=== PATIENT | female | born 2000 | race Two or more races ===

== ENCOUNTER 2021-08-13 08:52 | Emergency (ER) | payer BC, OTHER ==
[~2021-08-13] VITALS: Ht 167.6 cm; Wt 83.9 kg
[2021-08-13 09:35] VITALS: BP 120/81
== END 2021-08-13 10:47 | disposition home or self-care (01) ==
LOC: ER 08:52
DX: S90.122A Contusion of left lesser toe(s) without damage to nail, initial encounter (principal); W22.8XXA Striking against or struck by other objects, initial encounter; Y93.89 Activity, other specified; Y92.89 Other specified places as the place of occurrence of the external cause; Y99.8 Other external cause status
CPT/HCPCS: 73630

== ENCOUNTER 2021-12-26 16:14 | Emergency (ER) | payer BC ==
[~2021-12-26] VITALS: Ht 167.6 cm; Wt 88.6 kg
[2021-12-26 16:25] VITALS: BP 121/80
[2021-12-26] MEDS ORDERED: IBUP800T27 PO (17:27)
== END 2021-12-26 17:36 | disposition home or self-care (01) ==
LOC: ER 16:14
DX: S20.212A Contusion of left front wall of thorax, initial encounter (principal); V48.5XXA Car driver injured in noncollision transport accident in traffic accident, initial encounter; Y93.89 Activity, other specified; Y92.89 Other specified places as the place of occurrence of the external cause; Y99.8 Other external cause status
CPT/HCPCS: 71046; 93005

== ENCOUNTER 2022-09-07 17:31 | Inpatient (IN) | payer BC ==
[~2022-09-07] VITALS: Ht 165.1 cm; Wt 98.3 kg
[~2022-09-07 17:31] MED LIST: IBUP800T27 PO
[2022-09-07 18:25] LABS: Basophils # (auto) 0.1 10 ^3/uL (0-0.2); Eosinophils # (auto) 0.1 10 ^3/uL (0-0.8); Eosinophils % (auto) 0.6 % (0.0-7.0); Nucleated Red Blood Cells % 0.1 %
[2022-09-07 18:26] LABS: Basophils % (auto) 0.3 % (0.0-2.0); Hematocrit 42.8 % (36.0-46.0); Hemoglobin 14.4 g/dL (12.2-16.2); Lymphocytes # (auto) 1.4 10 ^3/uL (0.4-5.4); Lymphocytes % (auto) 8.6 % (10.0-50.0); Mean Corpuscular Hemoglobin 26.4 pg (28.0-32.0); Mean Corpuscular Hgb Conc. 33.6 g/dL (32.0-36.0); Mean Corpuscular Volume 78.5 fL (80.0-100.0); Monocytes % (auto) 6.2 % (0.0-12.0); Neutrophils # (auto) 13.5 10 ^3/uL (1.6-8.6); Neutrophils % (auto) 84.3 % (37.0-80.0); Red Blood Cells 5.45 10^6/uL (4.0-5.20); Red Cell Distribution Width 14.5 % (11.8-14.3)
[2022-09-07 18:38] LABS: Albumin 4.4 g/dL (3.4-5.0); Calcium 9.4 mg/dL (8.5-10.1)
[2022-09-07 18:42] LABS: Bilirubin, Total 0.5 mg/dL (0.2-1.0); Total Protein 9.6 g/dL (6.4-8.2)
[2022-09-07] MEDS ORDERED: metroNIDAZOLE 500MG/100ML 100 ML IV ONE (21:00)
[2022-09-07] MEDS ORDERED: ACETAMINOPHEN 325 MG TAB PO PRN (23:15)
[2022-09-07] MEDS ORDERED: PANTOPRAZOLE 40 MG/10 ML VIAL INJ IV ONE (23:15)
[2022-09-07] MEDS ORDERED: SODIUM CHLORIDE 0.9% 1,000 ML IV ONE (23:30)
[2022-09-07 23:41] LABS: Cholesterol 194 mg/dL (< 200); Triglycerides 93 mg/dL (< 150)
[2022-09-07] MEDS: SODIUM CHLORIDE 0.9% 1,000 ML IV SCH (23:41)
[2022-09-07 23:43] LABS: HDL Cholesterol 56 mg/dL (40-59); LDL Cholesterol 130 mg/dL (< 100)
[2022-09-07] MEDS: ONDANSETRON HCL 4 MG/2 ML VIAL IV PRN (23:51)
[2022-09-08] MEDS: SODIUM CHLORIDE 0.9% 1,000 ML IV SCH (03:05)
[2022-09-08 06:53] LABS: Basophils # (auto) 0.1 10 ^3/uL (0-0.2); Basophils % (auto) 1.1 % (0.0-2.0); Eosinophils # (auto) 0 10 ^3/uL (0-0.8); Eosinophils % (auto) 0.1 % (0.0-7.0); Hematocrit 36.1 % (36.0-46.0); Hemoglobin 12.2 g/dL (12.2-16.2); Lymphocytes # (auto) 0.6 10 ^3/uL (0.4-5.4); Lymphocytes % (auto) 6.2 % (10.0-50.0); Mean Corpuscular Hemoglobin 26.3 pg (28.0-32.0); Mean Corpuscular Hgb Conc. 33.8 g/dL (32.0-36.0); Mean Corpuscular Volume 77.8 fL (80.0-100.0); Monocytes # (auto) 0.3 10 ^3/uL (0-1.3); Monocytes % (auto) 3.2 % (0.0-12.0); Neutrophils # (auto) 8.2 10 ^3/uL (1.6-8.6); Neutrophils % (auto) 89.4 % (37.0-80.0); Nucleated Red Blood Cells % 0.1 %; Red Blood Cells 4.64 10^6/uL (4.0-5.20); Red Cell Distribution Width 14.6 % (11.8-14.3); White Blood Cell 9.2 10^3/uL (4.4-10.8)
[2022-09-08] MEDS: metroNIDAZOLE 500MG/100ML 100 ML IV SCH ×3 (07:05→21:03)
[2022-09-08 07:13] LABS: Albumin 3.6 g/dL (3.4-5.0); Potassium 3.5 mmol/L (3.5-5.1)
[2022-09-08 07:18] LABS: BUN/Creatinine Ratio 16.4 (10.0-20.0); Bilirubin, Total 0.7 mg/dL (0.2-1.0); Total Protein 7.6 g/dL (6.4-8.2)
[2022-09-08 08:19] LABS: Urine Bacteria NONE SEEN /hpf (None Seen); Urine Blood Negative /uL (Negative); Urine Hyaline Cast FEW /lpf (0 - 2); Urine Mucus FEW (None Seen); Urine Specific Gravity 1.027 (1.001-1.035); Urine WBC 10 /hpf (0 - 5)
[2022-09-08] MEDS: ONDANSETRON HCL 4 MG/2 ML VIAL IV PRN (08:54)
[2022-09-08] MEDS ORDERED: ACETAMINOPHEN 500 MG TAB PO PRN (10:30)
[2022-09-08] MEDS ORDERED: ONDANSETRON HCL 4 MG/2 ML VIAL IV PRN (10:30)
[2022-09-08] MEDS ORDERED: HYDROcodone-ACET 5/325MG TAB PO PRN (10:30)
[2022-09-08] MEDS: PANTOPRAZOLE 40 MG/10 ML VIAL INJ IV SCH (11:37)
[2022-09-08] MEDS: D5W/SOD CHL 0.45%/KCL 20MEQ 1,000 ML IV SCH ×2 (11:37→18:45)
[2022-09-08] MEDS: levoFLOXacin 500MG 100 ML IV SCH (11:38)
[2022-09-08] MEDS: MORPHINE SULFATE INJ 2 MG/ml SYRG IV PRN ×2 (11:39→21:11)
[2022-09-08 18:08] VITALS: BP 94/61
[2022-09-08 20:00] VITALS: BP 107/70
[2022-09-08 21:51] VITALS: BP 95/56
[2022-09-09] MEDS: D5W/SOD CHL 0.45%/KCL 20MEQ 1,000 ML IV SCH ×3 (01:54→20:00)
[2022-09-09 04:45] VITALS: BP 99/63
[2022-09-09] MEDS: metroNIDAZOLE 500MG/100ML 100 ML IV SCH ×3 (05:48→20:57)
[2022-09-09 05:59] LABS: Basophils # (auto) 0 10 ^3/uL (0-0.2); Eosinophils # (auto) 0.1 10 ^3/uL (0-0.8); Lymphocytes # (auto) 0.9 10 ^3/uL (0.4-5.4); Nucleated Red Blood Cells % 0.1 %
[2022-09-09 06:05] LABS: Basophils % (auto) 0.7 % (0.0-2.0); Eosinophils % (auto) 2.3 % (0.0-7.0); Hematocrit 33.8 % (36.0-46.0); Hemoglobin 11.4 g/dL (12.2-16.2); Lymphocytes % (auto) 25.4 % (10.0-50.0); Mean Corpuscular Hemoglobin 26.6 pg (28.0-32.0); Mean Corpuscular Hgb Conc. 33.8 g/dL (32.0-36.0); Mean Corpuscular Volume 78.6 fL (80.0-100.0); Monocytes # (auto) 0.6 10 ^3/uL (0-1.3); Monocytes % (auto) 15.9 % (0.0-12.0); Neutrophils # (auto) 2.1 10 ^3/uL (1.6-8.6); Neutrophils % (auto) 55.7 % (37.0-80.0); Red Cell Distribution Width 14.1 % (11.8-14.3); White Blood Cell 3.7 10^3/uL (4.4-10.8)
[2022-09-09 06:15] LABS: Albumin 2.9 g/dL (3.4-5.0); Calcium 8.2 mg/dL (8.5-10.1); Potassium 3.6 mmol/L (3.5-5.1)
[2022-09-09 06:17] LABS: BUN/Creatinine Ratio 5.3 (10.0-20.0)
[2022-09-09 06:21] LABS: Bilirubin, Total 0.4 mg/dL (0.2-1.0); Total Protein 6.9 g/dL (6.4-8.2)
[2022-09-09] MEDS: PANTOPRAZOLE 40 MG/10 ML VIAL INJ IV SCH (08:49)
[2022-09-09] MEDS: levoFLOXacin 500MG 100 ML IV SCH (08:49)
[2022-09-09 09:00] VITALS: BP 98/62
[2022-09-09 13:00] VITALS: BP 107/74
[2022-09-09 17:00] VITALS: BP 98/66
[2022-09-09 22:00] VITALS: BP 96/62
[2022-09-10] MEDS: D5W/SOD CHL 0.45%/KCL 20MEQ 1,000 ML IV SCH ×5 (04:10→21:47)
[2022-09-10 05:00] VITALS: BP 97/59
[2022-09-10] MEDS: metroNIDAZOLE 500MG/100ML 100 ML IV SCH ×3 (06:16→21:47)
[2022-09-10 07:34] LABS: Basophils # (auto) 0 10 ^3/uL (0-0.2); Eosinophils # (auto) 0.1 10 ^3/uL (0-0.8); Monocytes # (auto) 0.6 10 ^3/uL (0-1.3); Nucleated Red Blood Cells % 0.1 %; Red Cell Distribution Width 14.3 % (11.8-14.3); White Blood Cell 3.7 10^3/uL (4.4-10.8)
[2022-09-10 07:37] LABS: Basophils % (auto) 0.9 % (0.0-2.0); Eosinophils % (auto) 3.8 % (0.0-7.0); Hematocrit 36.5 % (36.0-46.0); Hemoglobin 12.3 g/dL (12.2-16.2); Lymphocytes % (auto) 28.2 % (10.0-50.0); Mean Corpuscular Hemoglobin 26.5 pg (28.0-32.0); Mean Corpuscular Hgb Conc. 33.6 g/dL (32.0-36.0); Mean Corpuscular Volume 78.9 fL (80.0-100.0); Monocytes % (auto) 17.5 % (0.0-12.0); Neutrophils # (auto) 1.8 10 ^3/uL (1.6-8.6); Neutrophils % (auto) 49.6 % (37.0-80.0); Red Blood Cells 4.63 10^6/uL (4.0-5.20)
[2022-09-10 09:00] VITALS: BP 107/67
[2022-09-10] MEDS ORDERED: levoFLOXacin 500MG 100 ML IV ONE (09:16)
[2022-09-10] MEDS ORDERED: MIDAZOLAM HCL 2MG/2ML 2ml VIAL (1mg/ml) ONE (09:17)
[2022-09-10] MEDS ORDERED: fentaNYL CITRATE 100 MCG/2 ML VL ONE (09:17)
[2022-09-10] MEDS ORDERED: MEPERIDINE HCL (50 MG/ML) 1 ML VIAL ONE (09:17)
[2022-09-10] MEDS ORDERED: PROPOFOL 10 MG/ML 20 ML IV ONE (09:23)
[2022-09-10] MEDS ORDERED: DexAMETHasone SOD PHOS 10MG/1ML VIAL INJ ONE (09:23)
[2022-09-10] MEDS: levoFLOXacin 500MG 100 ML IV SCH (10:00)
[2022-09-10] MEDS ORDERED: ROCURONIUM 10MG/ML 10ML VIAL IV ONE (10:24)
[2022-09-10] MEDS: BUPIVACAINE 0.25% INJ 50ML VIAL ONE ×2 (10:25→11:08)
[2022-09-10] MEDS: LIDOCAINE W/ EPINEPHRINE 1% 20ML VIAL ONE ×2 (10:25→11:08)
[2022-09-10] MEDS ORDERED: SUGAMMADEX 200mg/2ml Vial (100MG/ML) IV ONE (10:40)
[2022-09-10] MEDS: HYDROmorphone HCL 2 MG/ML VL/or syr IV PRN ×5 (11:07→18:46)
[2022-09-10] MEDS: MORPHINE SULFATE INJ 2 MG/ml SYRG IV PRN ×2 (11:27→11:54)
[2022-09-10] MEDS ORDERED: ONDANSETRON HCL 4 MG/2 ML VIAL IV PRN (11:30)
[2022-09-10] MEDS ORDERED: ePHEDrine SULFATE 50 MG/ML AMP IV PRN (11:30)
[2022-09-10] MEDS ORDERED: MORPHINE SULFATE 4 MG/ML SYR/VIAL IV PRN (11:30)
[2022-09-10] MEDS ORDERED: KETOROLAC TROMETH 30 MG/ML 1ML VIAL IV ONE (11:30)
[2022-09-10] MEDS ORDERED: MIDAZOLAM HCL 2MG/2ML 2ml VIAL (1mg/ml) IV PRN (11:30)
[2022-09-10] MEDS ORDERED: LABETALOL HCL 5 MG/ML 4ML SYRINGE IV PRN (11:30)
[2022-09-10 16:33] VITALS: BP 99/62
[2022-09-10 22:00] VITALS: BP 99/69
[2022-09-11 05:00] VITALS: BP 91/55
[2022-09-11] MEDS: D5W/SOD CHL 0.45%/KCL 20MEQ 1,000 ML IV SCH ×3 (05:10→07:44)
[2022-09-11] MEDS: metroNIDAZOLE 500MG/100ML 100 ML IV SCH ×2 (06:15→14:06)
[2022-09-11 08:46] LABS: Basophils # (auto) 0 10 ^3/uL (0-0.2); Basophils % (auto) 0.2 % (0.0-2.0); Eosinophils # (auto) 0 10 ^3/uL (0-0.8); Eosinophils % (auto) 0.2 % (0.0-7.0); Hematocrit 37.5 % (36.0-46.0); Hemoglobin 12.5 g/dL (12.2-16.2); Lymphocytes # (auto) 1.4 10 ^3/uL (0.4-5.4); Mean Corpuscular Hemoglobin 25.9 pg (28.0-32.0); Mean Corpuscular Hgb Conc. 33.4 g/dL (32.0-36.0); Mean Corpuscular Volume 77.5 fL (80.0-100.0); Monocytes # (auto) 0.7 10 ^3/uL (0-1.3); Monocytes % (auto) 8.5 % (0.0-12.0); Neutrophils # (auto) 5.6 10 ^3/uL (1.6-8.6); Neutrophils % (auto) 73.1 % (37.0-80.0); Nucleated Red Blood Cells % 0.1 %; Red Blood Cells 4.84 10^6/uL (4.0-5.20); Red Cell Distribution Width 14.4 % (11.8-14.3); White Blood Cell 7.7 10^3/uL (4.4-10.8)
[2022-09-11 09:00] VITALS: BP 94/57
[2022-09-11 09:03] LABS: BUN/Creatinine Ratio 8.5 (10.0-20.0); Calcium 8.9 mg/dL (8.5-10.1); Potassium 3.6 mmol/L (3.5-5.1)
[2022-09-11] MEDS ORDERED: HYDR-4902 PO (09:26)
[2022-09-11] MEDS ORDERED: LEVO500T31 PO (09:26)
[2022-09-11] MEDS ORDERED: METR500T PO (09:26)
[2022-09-11] MEDS: HYDROmorphone HCL 2 MG/ML VL/or syr IV PRN (10:21)
[2022-09-11] MEDS: levoFLOXacin 500MG 100 ML IV SCH (10:21)
[2022-09-11 10:55] VITALS: BP 97/62
== END 2022-09-11 16:12 | disposition home or self-care (01) | DRG 855 ==
LOC: ER 17:31 → OVERFLOW 23:16 → WEST WING 09-08 17:29
PROVIDERS: ADMIT Nurse Practitioner Family; ATTEND Nurse Practitioner Acute Care
PROC: 0DTJ4ZZ Resection of Appendix, Percutaneous Endoscopic Approach (ICD-10-PCS; principal; 2022-09-10 10:06)
DX: A41.9 Sepsis, unspecified organism (principal); K52.9 Noninfective gastroenteritis and colitis, unspecified; E66.01 Morbid (severe) obesity due to excess calories; K59.03 Drug induced constipation; K36 Other appendicitis; T40.605A Adverse effect of unspecified narcotics, initial encounter; Z88.0 Allergy status to penicillin; Z85.9 Personal history of malignant neoplasm, unspecified; Z83.3 Family history of diabetes mellitus; Z68.35 Body mass index [BMI] 35.0-35.9, adult; Y92.89 Other specified places as the place of occurrence of the external cause
CPT/HCPCS: 36415; 74176; 76705; 80048; 80053; 80061; 81001; 81025; 83036; 83605; 83690; 84443; 84702; 85025; 86850; 86900; 86901; 87040; 96365; C9113; G0378; J1100; J1956; J2250; J2405; J2704; J3490